=== PATIENT | female | born 1935 | race Caucasian/White ===

== ENCOUNTER 2016-05-04 18:19 | Emergency (ER) | payer OTHER ==
[~2016-05-04 18:19] MED LIST: ALLERGY10 MG PO; ASPIR 8181 MG PO; BUMEX 1MG TABLET1 MG PO; CATAPRES 0.1MG0.1 MG PO; HYDRALAZINE HCL50 MG PO; IPRAT-ALBUT 0.5-3 ML INH; KLONOPIN TAB 00.5 MG PO; LANTUS100 UNIT/1 SQ; LEVOTHYROXINE50 MCG PO; LIPITOR TAB 2020 MG PO; LOPRESSOR 25 MG25 MG PO; MAPAP500 M1 PO; NASONEX SPRAY 117 GM; NORVASC10 MG PO; RISPERDAL0.25 MG PO; SINGULAIR10 MG PO; TAB-A-VITE1 EACH PO; VITAMIN B-121000 MC3 PO; ZYLOPRIM 100 M100 MG PO
[2016-05-04 21:44] LABS: HEMOGLOBIN 11.8 gm/dl (12.3-15.3); RED BLOOD COUNT 3.78 M/UL (4.00-5.10); WHITE BLOOD COUNT 7.6 K/UL (4.5-11.0)
== END 2016-05-04 23:40 | disposition home or self-care (01) ==
LOC: ER1 18:19
PROVIDERS: Physician Assistant
DX: N39.0 Urinary tract infection, site not specified (principal); K57.90 Diverticulosis of intestine, part unspecified, without perforation or abscess without bleeding; I13.2 Hypertensive heart and chronic kidney disease with heart failure and with stage 5 chronic kidney disease, or end stage renal disease; I50.9 Heart failure, unspecified; N18.6 End stage renal disease; E11.22 Type 2 diabetes mellitus with diabetic chronic kidney disease; E78.5 Hyperlipidemia, unspecified; Z88.2 Allergy status to sulfonamides; Z91.041 Radiographic dye allergy status
CPT/HCPCS: 36415; 80053; 81001; 83690; 85025; 87077; 87086; 87186; 96374; 99284; J2765

== ENCOUNTER 2016-05-15 18:56 | Emergency (ER) | payer OTHER ==
[2016-05-15 21:01] LABS: HEMOGLOBIN 11.9 gm/dl (12.3-15.3); RED BLOOD COUNT 3.76 M/UL (4.00-5.10); WHITE BLOOD COUNT 11.3 K/UL (4.5-11.0)
== END 2016-05-16 02:48 | disposition home or self-care (01) ==
LOC: ER1 18:56
PROVIDERS: Emergency Medicine
DX: N17.9 Acute kidney failure, unspecified (principal); I13.0 Hypertensive heart and chronic kidney disease with heart failure and stage 1 through stage 4 chronic kidney disease, or unspecified chronic kidney disease; E11.22 Type 2 diabetes mellitus with diabetic chronic kidney disease; N18.9 Chronic kidney disease, unspecified; E11.65 Type 2 diabetes mellitus with hyperglycemia; I50.9 Heart failure, unspecified; R10.30 Lower abdominal pain, unspecified; Z87.891 Personal history of nicotine dependence; Z99.81 Dependence on supplemental oxygen; Z88.2 Allergy status to sulfonamides; Z88.1 Allergy status to other antibiotic agents; Z91.041 Radiographic dye allergy status; Z79.82 Long term (current) use of aspirin; Z79.52 Long term (current) use of systemic steroids; Z79.899 Other long term (current) drug therapy
CPT/HCPCS: 36415; 80048; 80053; 81001; 82150; 83690; 84484; 85025; 93005; 96374; 96375; 99284; J2270; J2405; J7040

== ENCOUNTER 2016-05-18 17:28 | Inpatient (IN) | payer OTHER ==
[~2016-05-18] VITALS: Ht 152.4 cm; Wt 65.8 kg
[2016-05-18 18:46] LABS: HEMOGLOBIN 10.8 gm/dl (12.3-15.3); RED BLOOD COUNT 3.46 M/UL (4.00-5.10); WHITE BLOOD COUNT 9.5 K/UL (4.5-11.0)
[2016-05-18] MEDS ORDERED: PENTOXIFYLLINE400 MG PO (19:08)
[2016-05-18] MEDS ORDERED: ALDACTONE25 MG PO (19:09)
[2016-05-18] MEDS ORDERED: NEURONTIN 100100 MG PO (19:09)
[2016-05-18] MEDS ORDERED: TRADJENTA5 MG PO (19:10)
[2016-05-19 06:19] LABS: HEMOGLOBIN 9.4 gm/dl (12.3-15.3)
[2016-05-19 06:34] LABS: RED BLOOD COUNT 3.04 M/UL (4.00-5.10); WHITE BLOOD COUNT 5.1 K/UL (4.5-11.0)
[2016-05-20 06:24] LABS: HEMOGLOBIN 10.5 gm/dl (12.3-15.3)
[2016-05-20 06:33] LABS: RED BLOOD COUNT 3.36 M/UL (4.00-5.10); WHITE BLOOD COUNT 7.9 K/UL (4.5-11.0)
[2016-05-20] MEDS ORDERED: PLAVIX 75 MG TA75 MG PO (14:57)
[2016-05-20] MEDS ORDERED: PROTONIX20 MG PO (14:57)
[2016-05-20] MEDS ORDERED: GLUCERNA237 ML PO (15:00)
== END 2016-05-20 15:56 | disposition home or self-care (01) | DRG 300 ==
LOC: MED SURG 4 17:28
PROVIDERS: ADMIT Internal Medicine
DX: I73.9 Peripheral vascular disease, unspecified (principal); I13.0 Hypertensive heart and chronic kidney disease with heart failure and stage 1 through stage 4 chronic kidney disease, or unspecified chronic kidney disease; N17.9 Acute kidney failure, unspecified; I50.32 Chronic diastolic (congestive) heart failure; K92.0 Hematemesis; K55.1 Chronic vascular disorders of intestine; I65.29 Occlusion and stenosis of unspecified carotid artery; N18.3 Chronic kidney disease, stage 3 (moderate); E11.649 Type 2 diabetes mellitus with hypoglycemia without coma; E78.5 Hyperlipidemia, unspecified; E03.9 Hypothyroidism, unspecified; I48.0 Paroxysmal atrial fibrillation; R10.12 Left upper quadrant pain; R63.0 Anorexia; E86.0 Dehydration; I95.1 Orthostatic hypotension; D64.9 Anemia, unspecified; M10.9 Gout, unspecified; Z96.641 Presence of right artificial hip joint; Z98.890 Other specified postprocedural states; Z87.891 Personal history of nicotine dependence; Z91.041 Radiographic dye allergy status; Z88.2 Allergy status to sulfonamides; Z88.8 Allergy status to other drugs, medicaments and biological substances; Z79.899 Other long term (current) drug therapy; Z79.82 Long term (current) use of aspirin; Z79.4 Long term (current) use of insulin
CPT/HCPCS: ECHO; 36415; 74000; 80048; 80053; 82550; 82553; 82962; 83735; 84484; 85025; 85027; 93005; 93306; 93880; C9113; J7030

== ENCOUNTER 2016-06-04 10:00 | Emergency (ER) | payer OTHER ==
[~2016-06-04 10:00] MED LIST changes: +ALDACTONE25 MG PO; +GLUCERNA237 ML PO; +NEURONTIN 100100 MG PO; +PENTOXIFYLLINE400 MG PO; +PLAVIX 75 MG TA75 MG PO; +PROTONIX20 MG PO; +TRADJENTA5 MG PO
[2016-06-04 11:01] LABS: HEMOGLOBIN 11.7 gm/dl (12.3-15.3); RED BLOOD COUNT 3.76 M/UL (4.00-5.10); WHITE BLOOD COUNT 7.3 K/UL (4.5-11.0)
== END 2016-06-04 17:00 | disposition home or self-care (01) ==
LOC: ER1 10:00
PROVIDERS: Physician Assistant
DX: R53.1 Weakness (principal); N39.0 Urinary tract infection, site not specified; I12.9 Hypertensive chronic kidney disease with stage 1 through stage 4 chronic kidney disease, or unspecified chronic kidney disease; N18.9 Chronic kidney disease, unspecified; I25.10 Atherosclerotic heart disease of native coronary artery without angina pectoris; I48.91 Unspecified atrial fibrillation; I50.9 Heart failure, unspecified; E03.9 Hypothyroidism, unspecified; K57.90 Diverticulosis of intestine, part unspecified, without perforation or abscess without bleeding; Z88.2 Allergy status to sulfonamides; Z79.4 Long term (current) use of insulin; Z91.041 Radiographic dye allergy status; Z88.1 Allergy status to other antibiotic agents; Z88.6 Allergy status to analgesic agent; Z87.891 Personal history of nicotine dependence; E11.22 Type 2 diabetes mellitus with diabetic chronic kidney disease
CPT/HCPCS: 36415; 71010; 80053; 81001; 82550; 82553; 83690; 83874; 84443; 84484; 85025; 87077; 87086; 87186; 93005; 96360; 96361; 99285

== ENCOUNTER 2016-06-27 09:08 | Emergency (ER) | payer OTHER ==
[2016-06-27 10:39] LABS: HEMOGLOBIN 8.5 gm/dl (12.3-15.3); RED BLOOD COUNT 2.72 M/UL (4.00-5.10); WHITE BLOOD COUNT 6.8 K/UL (4.5-11.0)
== END 2016-06-27 12:41 | disposition short-term general hospital (02) ==
LOC: ER1 09:08
PROVIDERS: Physician Assistant
DX: G45.9 Transient cerebral ischemic attack, unspecified (principal); E11.22 Type 2 diabetes mellitus with diabetic chronic kidney disease; N18.9 Chronic kidney disease, unspecified; E11.649 Type 2 diabetes mellitus with hypoglycemia without coma; D64.9 Anemia, unspecified; I25.10 Atherosclerotic heart disease of native coronary artery without angina pectoris; Z88.1 Allergy status to other antibiotic agents; Z88.2 Allergy status to sulfonamides; Z88.6 Allergy status to analgesic agent
CPT/HCPCS: 36415; 70450; 71010; 80053; 82550; 82553; 82962; 83874; 84484; 85025; 93005; 99285

== ENCOUNTER → 2016-11-03 | Outpatient (CLI) | payer OTHER ==
[~2016-11-03] MED LIST changes: +NEURONTIN600 MG PO; +TRAMADOL HCL50 MG PO
== END ==
LOC: EMI 10-29 15:00 → MRI 12:11 → EMI 13:00 → MRI 13:00
DX: I10 Essential (primary) hypertension (principal)
CPT/HCPCS: 36415; 82565; 84520; A9577; C8902

== ENCOUNTER 2016-11-05 18:02 | Inpatient (IN) | payer OTHER ==
[~2016-11-05] VITALS: Ht 152.4 cm; Wt 63.5 kg
[~2016-11-05 18:02] MED LIST changes: -NEURONTIN600 MG PO; -TRAMADOL HCL50 MG PO
[2016-11-05 20:40] LABS: RED BLOOD COUNT 1.9 M/UL (4.00-5.10)
[2016-11-05 20:44] LABS: HEMOGLOBIN 4.7 gm/dl (12.3-15.3)
[2016-11-06] MEDS ORDERED: NEURONTIN600 MG PO (01:29)
[2016-11-06] MEDS ORDERED: TRAMADOL HCL50 MG PO (01:38)
[2016-11-06] MEDS ORDERED: TRADJENTA5 MG PO (01:39)
[2016-11-06] MEDS ORDERED: PENTOXIFYLLINE400 MG PO (01:44)
[2016-11-06 10:10] LABS: WHITE BLOOD COUNT 4.6 K/UL (4.5-11.0)
[2016-11-06 10:13] LABS: HEMOGLOBIN 7.3 gm/dl (12.3-15.3); RED BLOOD COUNT 2.81 M/UL (4.00-5.10)
[2016-11-06 15:19] LABS: HEMOGLOBIN 7.7 gm/dl (12.3-15.3)
[2016-11-06 21:11] LABS: HEMOGLOBIN 7.1 gm/dl (12.3-15.3)
[2016-11-07 05:48] LABS: HEMOGLOBIN 7.1 gm/dl (12.3-15.3); RED BLOOD COUNT 2.75 M/UL (4.00-5.10); WHITE BLOOD COUNT 4.8 K/UL (4.5-11.0)
[2016-11-07 23:34] LABS: HEMOGLOBIN 9.7 gm/dl (12.3-15.3)
[2016-11-08 04:11] LABS: HEMOGLOBIN 9.3 gm/dl (12.3-15.3); WHITE BLOOD COUNT 5.9 K/UL (4.5-11.0)
[2016-11-08 04:12] LABS: RED BLOOD COUNT 3.58 M/UL (4.00-5.10)
[2016-11-08] MEDS ORDERED: LEVAQUIN500 MG PO (17:35)
== END 2016-11-08 18:25 | disposition home or self-care (01) | DRG 378 ==
LOC: ER1 18:02 → ZEROF 21:19 → MED SURG 4 21:19 → PROG CARE 22:09 → ZEROF 22:09 → PROG CARE 22:09 → MED SURG 4 11-06 00:15
PROVIDERS: Internal Medicine; Physician Assistant; ADMIT Hospitalist
PROC: 30233N1 Transfusion of Nonautologous Red Blood Cells into Peripheral Vein, Percutaneous Approach (ICD-10-PCS; principal; 2016-11-06)
PROC: 30233N1 Transfusion of Nonautologous Red Blood Cells into Peripheral Vein, Percutaneous Approach (ICD-10-PCS; 2016-11-07)
PROC: 0DJ08ZZ Inspection of Upper Intestinal Tract, Via Natural or Artificial Opening Endoscopic (ICD-10-PCS; 2016-11-07)
PROC: 0DJD8ZZ Inspection of Lower Intestinal Tract, Via Natural or Artificial Opening Endoscopic (ICD-10-PCS; 2016-11-08)
DX: K92.1 Melena (principal); D62 Acute posthemorrhagic anemia; N30.00 Acute cystitis without hematuria; I13.0 Hypertensive heart and chronic kidney disease with heart failure and stage 1 through stage 4 chronic kidney disease, or unspecified chronic kidney disease; I50.32 Chronic diastolic (congestive) heart failure; I70.90 Unspecified atherosclerosis; N18.3 Chronic kidney disease, stage 3 (moderate); I48.0 Paroxysmal atrial fibrillation; K64.8 Other hemorrhoids; I25.10 Atherosclerotic heart disease of native coronary artery without angina pectoris; E11.9 Type 2 diabetes mellitus without complications; K21.9 Gastro-esophageal reflux disease without esophagitis; M19.90 Unspecified osteoarthritis, unspecified site; M81.0 Age-related osteoporosis without current pathological fracture; I65.29 Occlusion and stenosis of unspecified carotid artery; E03.9 Hypothyroidism, unspecified; Z88.2 Allergy status to sulfonamides; Z88.8 Allergy status to other drugs, medicaments and biological substances; Z88.1 Allergy status to other antibiotic agents; Z79.02 Long term (current) use of antithrombotics/antiplatelets; Z79.82 Long term (current) use of aspirin; Z79.899 Other long term (current) drug therapy; K57.30 Diverticulosis of large intestine without perforation or abscess without bleeding; K44.9 Diaphragmatic hernia without obstruction or gangrene; Q27.33 Arteriovenous malformation of digestive system vessel
CPT/HCPCS: 36415; 80048; 80053; 81001; 82272; 82607; 82728; 82746; 82962; 83010; 83540; 83550; 83735; 84443; 85014; 85018; 85025; 85027; 85610; 85730; 86140; 86850; 86900; 86901; 86920; 87077; 87086; 87186; C9113; J1956; J2250; J2270; J7030; J7040; P9016; Q0163